=== PATIENT | male | born 1975 | race Caucasian/White ===

== ENCOUNTER 2019-03-18 08:23 | Outpatient (CLI) | payer OTHER ==
[2019-03-18] MEDS ORDERED: Iopamidol 370 76% 100 ML VIAL ONE (09:00)
--- NOTE | 2019-03-18 12:31 | CT ---
CT ABDOMEN WITH AND WITHOUT IV CONTRAST: History Left renal mass. FINDINGS: The lung bases are clear. The liver, spleen, pancreas, and adrenal glands are normal. No calcified gallstones are seen. There is a 4.5 cm heterogeneously enhancing exophytic mass arising from the upper medial cortex of th e left kidney. No tumorous thrombosis is seen in the left renal vein. There is a small 12 mm exophy tic mass arising from the right renal cortex which demonstrates no postcontrast enhancement. The att enuation values are greater than 10. No free air, free fluid, or lymphadenopathy is seen in the abdomen. There are vascular calcification s without evidence of aneurysmal dilatation of the abdominal aorta. A small fat-containing umbilical hernia is present. No osteolytic or osteoblastic lesions are identified. IMPRESSION: 1. Findings suspicious for left renal malignancy. 2. Probably benign 12 mm right renal mass. This should be evaluated with ultrasound. If this is no t seen on ultrasound, a followup CT scan should be obtained in 3 months. CODE T POS: [facility]
== END 2019-03-18 08:24 | disposition home or self-care (01) ==
LOC: SCSCT 08:23
PROVIDERS: ATTEND Family Medicine
DX: N28.89 Other specified disorders of kidney and ureter (principal)
CPT/HCPCS: 74170; Q9967

== ENCOUNTER 2019-04-07 08:02 | Outpatient (CLI) | payer OTHER ==
--- NOTE | 2019-04-07 09:58 | CT ---
CT Chest W Con HISTORY: Left renal mass. Evaluation for metastatic disease. COMPARISON: CT of abdomen performed 03/18/2019. FINDINGS: The lungs are clear of any infiltrative process. There are no pulmonary nodules identified. The thyroid gland is within normal limits. There is no significant mediastinal or hilar adenopathy. No significant axillary adenopathy No lytic or blastic bony change. The abdominal findings will be described in the subsequent report of the CT angiogram of the abdomen. IMPRESSION: No evidence of metastatic disease to the chest, no pulmonary nodules identified.
--- NOTE | 2019-04-07 11:15 | CT ---
CTA ABDOMEN WITH CONTRAST: Axial tomograms were obtained following an aorta protocol in the arterial phase with multiplanar nikole nstruction and 3D post processing. INDICATION: Left renal mass. COMPARISON: Comparison is made to recent CT abdomen with and without contrast following renal protocol performed 03/18/2019. That exam revealed an enhancing mass in the left kidney consistent with neoplasm. An und etermined exophytic mass in the right kidney was described. FINDINGS: Abdominal aorta is unremarkable. There is minimal atherosclerotic change distally. There is no evid ence of luminal narrowing or aneurysm. No evidence of dissection. Aortic branches including celiac artery, superior mesenteric artery, and renal arteries are unremarkable with no atherosclerotic disea se or stenosis. Lung bases clear. Liver, spleen, and pancreas unremarkable. Adrenal glands normal. The heterogeneously enhancing 4.5 cm mass from the medial left kidney is again seen consistent with r enal cell carcinoma. An indeterminate exophytic low-density mass in the right lateral renal cortex is again noted measurin g 1.4 cm. This lesion shows densities of 41 Hounsfield units on this arterial phase study. On the p rior exam, a precontrast density was recorded at 17 Hounsfield units which would indicate enhancement making this a complex lesion which will need to be followed. Small subcentimeter lymph nodes on the right just posterior to the inferior vena cava are seen. No other evidence of adenopathy. Small umbilical hernia again noted. Osseous structures unremarkable. IMPRESSION: 1. Unremarkable CT aortogram. 2. Enhancing mass left kidney consistent with neoplasm again noted. 3. An indeterminate exophytic lesion from the lateral right kidney again seen. Followup is recommen ded. POS: [facility]
--- NOTE | 2019-04-07 11:57 | NM ---
NM Bone Scan STANDARD History: Other specified disorders of kidney and ureter. N 28.89 left renal mass Comparison: CT chest abdomen and pelvis today Findings: Whole body 3 hour delayed images were obtained after the intravenous administration 31.4 te chnetium 99m MDP. Adequate osseous uptake of radiotracer. The kidneys and urinary bladder are visualized. No abnormal uptake to suggest osseous metastatic disease. Impression: No osseous metastatic disease.
== END 2019-04-07 08:03 | disposition home or self-care (01) ==
LOC: CT 08:02
PROVIDERS: ATTEND Urology
DX: N28.89 Other specified disorders of kidney and ureter (principal); N28.9 Disorder of kidney and ureter, unspecified
CPT/HCPCS: 71260; 74175; 78306; A9503